=== PATIENT | male | born 1930 | race African-American/Black ===

== ENCOUNTER 2019-06-22 22:51 | Emergency (ER) | payer MEDICAID ==
[~2019-06-22] VITALS: Ht 165.1 cm; Wt 52.6 kg
--- NOTE | 2019-06-22 22:51 | NUR ---
PT BIBA TO THE ED [facility] C/O SOB AND FEVER PER REPORT. PT AAOX1, SATTING AT 97% ON RA. PT POSITIVE FOR COVID-19, RESULTS RECEIVED. PT CONNECTED TO THE CENTRAL SUPPLY MANAGER AND POX. CALL LIGHT PLACED WITHIN REACH. WILL CONTINUE TO MONITOR
--- NOTE | 2019-06-22 23:13 | NUR ---
CALLED DR [facility] [phone], LEFT VOICEMAIL
--- NOTE | 2019-06-23 | NUR ---
INFLUENZA SWAB SENT TO LAB
--- NOTE | 2019-06-23 | NUR ---
RT AT BEDSIDE
--- NOTE | 2019-06-23 00:01 | NUR ---
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
--- NOTE | 2019-06-23 00:01 | NUR ---
URINE COLLECTED AND SENT TO LAB
[2019-06-23 00:08] LABS: BASOPHILS # (AUTO) 0.1 /CMM (0.0-0.2); BASOPHILS % (AUTO) 1.1 % (0.0-2.0); EOSINOPHILS % (AUTO) 1.5 % (0.0-6.0); HEMATOCRIT 37 % (39-51); HEMOGLOBIN 12.5 g/dL (13.5-17.5); LYMPHOCYTES # (AUTO) 1.3 /CMM (0.8-4.8); LYMPHOCYTES % (AUTO) 28.5 % (20.0-44.0); MEAN CORPUSCULAR HGB CONC 34 g/dl (31.0-36.0); MEAN CORPUSCULAR VOLUME 94 fL (80-96); MONOCYTES # (AUTO) 0.9 /CMM (0.1-1.30); MONOCYTES % (AUTO) 19.8 % (2.0-12.0); NEUTROPHILS # (AUTO) 2.3 /CMM (1.8-8.9); NEUTROPHILS % (AUTO) 49.1 % (43.0-81.0); PLATELET COUNT (AUTO) 161 /CMM (150-450); RED BLOOD CELL COUNT(AUTO) 3.99 MIL/uL (4.5-6.0); WHITE BLOOD COUNT (AUTO) 4.7 K/uL (4.3-11.0)
[2019-06-23 00:13] LABS: APPEARANCE,URINE Clear (CLEAR); BILIRUBIN,URINE Negative (NEGATIVE); BLOOD, URINE Negative Ery/uL (NEGATIVE); COLOR,URINE Light yellow (YELLOW); KETONES,URINE Negative (NEGATIVE); LEUKOCYTE ESTERASE ,URINE Small (NEGATIVE); NITRITE, URINE Negative (NEGATIVE); PROTEIN,URINE Negative (NEGATIVE); UGLUCOSE Negative (NEGATIVE); UROBILINOGEN,URINE 0.2 EU/dL (0.2)
[2019-06-23 00:16] LABS: CALCIUM, SERUM 8.9 mg/dL (8.5-10.1); CARBON DIOXIDE 29 mmol/L (21-32); CHLORIDE 103 mmol/L (98-107); CREATININE 1.2 mg/dL (0.6-1.3); GLUCOSE 90 mg/dL (74-106); POTASSIUM 4.1 mmol/L (3.5-5.1); SODIUM SERUM 140 mmol/L (136-145); UREA NITROGEN, BLOOD 17 mg/dL (7-18)
[2019-06-23 00:27] LABS: D-DIMER 0.65 mg/L(FEU (0.17-0.50)
[2019-06-23 00:29] LABS: ALANINE AMINOTRANSFERASE 42 U/L (12-78); ALBUMIN 3.2 g/dL (3.4-5.0); ALKALINE PHOSPHATASE 118 U/L (46-116); ASPARTATE AMINOTRANSFERASE 34 U/L (15-37); B-TYPE NATRIURETIC PEPTIDE 90 PG/ML (0-125); BILIRUBIN,TOTAL 0.6 mg/dL (0.2-1.0); TOTAL PROTEIN, SERUM 7.6 g/dL (6.4-8.2)
--- NOTE | 2019-06-23 00:34 | NUR ---
RIN MCGRATH TALKING TO DR. FARAH REGARDING PT.
[2019-06-23 00:38] LABS: BACTERIA,URINE None seen /HPF (None Seen); RBC,URINE 0-2 /HPF (0-2); SQUAMOUS EPITHELIAL CELL,UR Few /HPF (None Seen)
[2019-06-23 01:01] LABS: CREATINE KINASE, TOTAL 118 U/L (39-308); FERRITIN 460 ng/mL (8-388)
--- NOTE | 2019-06-23 01:13 | NUR ---
CALLED PT CON HOME TO UPDATE THEM ON PT STATUS AND THAT WE WILL BE SENDING THE PT BACK
[2019-06-23 01:16] LABS: C-REACTIVE PROTEIN 2.9 mg/dL (0.0-0.9)
--- NOTE | 2019-06-23 01:21 | NUR ---
[facility] TO [facility]. #[phone]
--- NOTE | 2019-06-23 01:22 | NUR ---
AWAITING CALL BACK FROM [facility] FOR
--- NOTE | 2019-06-23 01:23 | NUR ---
REPORT CALLED TO [facility] STAFF NATE. WILL CALL FOR TRANSPORT.
--- NOTE | 2019-06-23 02:00 | NUR ---
RECEIVED CALL FROM [facility]. [facility] ETA [phone]
[2019-06-23] MEDS ORDERED: OLANZAPINE 10 MG VIAL IM ONE ×2 (02:48→03:00)
[2019-06-23] MEDS ORDERED: OLANZAPINE 5 MG/TAB.RAPDIS ONE (04:29)
[2019-06-23] MEDS ORDERED: OLANZAPINE 5 MG/TAB.RAPDIS PO ONE (04:30)
--- NOTE | 2019-06-23 05:45 | NUR ---
REPORT GIVEN TO EMS. PT TRANSFERRED BACK TO FACILITY IN STABLE CONDITION
[2019-06-23 06:34] VITALS: BP 114/74
== END 2019-06-23 05:50 ==
LOC: ER 22:57
DX: U07.1 COVID-19 (principal); E78.5 Hyperlipidemia, unspecified; N40.0 Benign prostatic hyperplasia without lower urinary tract symptoms; R94.31 Abnormal electrocardiogram [ECG] [EKG]; M62.81 Muscle weakness (generalized)
CPT/HCPCS: 36415; 36600; 71045; 80053; 81001; 82550; 82728; 82803; 83605; 83615; 83880; 84145; 84484; 85025; 85378; 85730; 86140; 87040; 87086; 87804; 93005; 96372; 99285; J3490; 81000-TC